=== PATIENT | male | born 1985 | race Caucasian/White ===

== ENCOUNTER 2022-04-04 10:49 | Emergency (ER) | payer BC, SELFPAY ==
--- NOTE | 2022-04-04 11:01 | ED.URI ---
HPI - URI/Sore Throat General Chief Complaint: Upper Respiratory Infection Stated Complaint: Congestion,Cough Time Seen by Provider: 04/04/22 11:00 Source: patient Mode of arrival: ambulatory Limitations: no limitations History of Present Illness HPI Narrative: Mr. Huerta is a 36-year-old male patient presenting to the clinic today with complaints of sinus pressure, congestion, and productive cough. Reports he is coughing up some green phlegm. Symptoms have been going on for 2 weeks. MD elicited complaint: cough, rhinorrhea, nasal congestion and sinus pain Related Data Allergies Allergy/AdvReac Type Severity Reaction Status Date / Time No Known Allergies Allergy Verified 09/05/20 07:16 Review of Systems Review of Systems: Pertinent positives per HPI. Patient denies any fever, chills, rash, headache, visual changes, dizziness, shortness of breath, chest pain, palpitations, nausea, vomiting, diarrhea, constipation, abdominal pain, or any urinary issues. [facility] History Surgical History History of left knee surgery left ACL reconstruction 2013 Family History Family History Father Hypertension Depression Social History Social History Smoking status: Never smoker Alcohol intake: current Living arrangements: with family Occupation/Education: occupation Additional occupation/education comments: [employer] Gender identity (if verbalized by the patient): Male Comments At the time of my signature, I reviewed and agree with the nursing past medical, surgical, social, and family history. There is no relevant family history pertinent to the patient complaint. Exam Narrative: General: Well-developed, well nourished, in no apparent distress Head: Normocephalic, atraumatic Eyes: Pupils equally round and reactive to light bilaterally, EOM intact, sclera and conjunctive clear, no discharge, lids normal Ears: TMs intact, dull, congested, ear canals clear, no drainage, grossly hearing normal. Nose: Nares patent, and green a discharge, severe inflammation, maxillary and frontal sinus tenderness. Mouth: Oral pharynx without lesions or masses, good dentition, MMM. Oropharynx red Neck: Supple, trachea midline, no enlargement of anterior or posterior cervical nodes, no thyroid masses or goiter palpable. Cardio: Regular rate and rhythm, s1 and s2 normal, no murmur appreciated. Resp: Clear to auscultation bilaterally, no rhonchi, rales, wheezing or rubs Course Course Emergency Course: Portions of this record may have been created with voice recognition software. Level of Care: Express Care Visit Vital Signs Vital signs: Vital signs reviewed MDM - URI/Sore Throat MDM Narrative Medical decision making narrative: At the time of visit patient is resting comfortably on the exam table. I suspect patient has acute bacterial rhinosinusitis. Prescription for Augmentin and prednisone was sent to the pharmacy and supportive measures were discussed with the patient and he understanding of the discharge instructions Differential Diagnosis Differential diagnosis: Likely upper respiratory infection, otitis media, sinusitis, viral infection, bronchitis, influenza, pharyngitis and other (COVID) Discharge Plan Discharge Clinical Impression: Acute bacterial rhinosinusitis Patient Disposition: Home, Self-Care Condition: Stable Instructions: Antibiotic Form, Rhinosinusitis (ED) Additional Instructions: Take prescription medications only as prescribed-prednisone and Augmentin Increase fluids and stay well hydrated Tylenol/motrin for pain/fever Flonase and OTC antihistamines as directed Vicks vapor rub to open sinuses Sinus rinses for congestion Cepacol spray, cough drops, throat lozenges, warm tea with honey/lemon,
[2022-04-04 11:26] VITALS: BP 132/85; PULSE 74; RESP 18; TEMP 36.3; O2SAT 97
== END 2022-04-04 11:04 | disposition home or self-care (01) ==
PROVIDERS: Emergency Provider Nurse Practitioner Family; PCP Nurse Practitioner Family
DX: J01.90 Acute sinusitis, unspecified (principal)
CPT/HCPCS: 99213; G0463